=== PATIENT | female | born 1995 | race Caucasian/White ===

== ENCOUNTER 2021-03-18 16:37 | Inpatient (IN) | payer SELFPAY ==
[~2021-03-18] VITALS: Ht 170.2 cm; Wt 95.3 kg
[~2021-03-18 16:37] MED LIST: CALCIUM500 MG PO; LEVOTHYROXINE100 MCG PO; PRENATAL VITAM1 EAC5 PO; TURMERIC1 GM MC
[2021-03-18 17:25] LABS: HEMOGLOBIN 12.3 gm/dl (12.3-15.3); RED BLOOD COUNT 4.09 M/UL (4.00-5.10); WHITE BLOOD COUNT 10.1 K/UL (4.5-11.0)
[2021-03-20 04:49] LABS: HEMOGLOBIN 12.3 gm/dl (12.3-15.3)
== END 2021-03-20 19:56 | disposition home or self-care (01) | DRG 807 ==
LOC: GENOP 16:37 → OB 16:59
PROVIDERS: Obstetrics & Gynecology; ADMIT Obstetrics & Gynecology
PROC: 10E0XZZ Delivery of Products of Conception, External Approach (ICD-10-PCS; principal; 2021-03-19)
PROC: 10907ZC Drainage of Amniotic Fluid, Therapeutic from Products of Conception, Via Natural or Artificial Opening (ICD-10-PCS; 2021-03-19)
PROC: 10H07YZ Insertion of Other Device into Products of Conception, Via Natural or Artificial Opening (ICD-10-PCS; 2021-03-19)
PROC: 3E033VJ Introduction of Other Hormone into Peripheral Vein, Percutaneous Approach (ICD-10-PCS; 2021-03-19)
PROC: 4A1H7CZ Monitoring of Products of Conception, Cardiac Rate, Via Natural or Artificial Opening (ICD-10-PCS; 2021-03-19)
PROC: 10H073Z Insertion of Monitoring Electrode into Products of Conception, Via Natural or Artificial Opening (ICD-10-PCS; 2021-03-19)
PROC: 0KQM0ZZ Repair Perineum Muscle, Open Approach (ICD-10-PCS; 2021-03-19)
DX: O30.013 Twin pregnancy, monochorionic/monoamniotic, third trimester (principal); Z37.2 Twins, both liveborn; O99.284 Endocrine, nutritional and metabolic diseases complicating childbirth; E03.9 Hypothyroidism, unspecified; O99.02 Anemia complicating childbirth; D64.9 Anemia, unspecified; Z20.822 Contact with and (suspected) exposure to COVID-19; H70.92 Unspecified mastoiditis, left ear; O99.893 Other specified diseases and conditions complicating puerperium; Z3A.36 36 weeks gestation of pregnancy; O70.1 Second degree perineal laceration during delivery
CPT/HCPCS: 36415; 81001; 85014; 85018; 85025; C9113; J0690; J2210; J2405; J2590; J7120; U0002